=== PATIENT | female | born 1990 ===

== ENCOUNTER 2019-08-25 21:43 | Inpatient (IN) | payer BC ==
[2019-08-25] MEDS ORDERED: Vancomycin 1.7 GM in Sodium Chloride 0.9% 250 ML IV SCH (23:45)
[2019-08-25] MEDS ORDERED: Methylergonovine 0.2 MG/1 ML Amp IM PRN (23:56)
[2019-08-25] MEDS ORDERED: Sodium Chloride 0.9% 10 ML Syringe FLUSH PRN (23:56)
[2019-08-25] MEDS ORDERED: Sodium Chloride 0.9% 10 ML SDV IV PRN (23:56)
[2019-08-25] MEDS ORDERED: Nalbuphine 10 MG/1 ML Vial IVPUSH PRN (23:56)
[2019-08-25] MEDS ORDERED: Lidocaine 1% 50 ML MDV INJECT PRN (23:56)
[2019-08-25] MEDS ORDERED: Water For Irrigation,Sterile 1,000 ML Container IRR PRN (23:56)
[2019-08-25] MEDS ORDERED: Misoprostol 200 MCG Tab PO PRN (23:56)
[2019-08-25] MEDS ORDERED: Carboprost Tromethamine 250 MCG/1 ML Amp IM PRN (23:56)
[2019-08-25] MEDS ORDERED: Sodium Chloride 0.9% 2.5 ML Syringe FLUSH PRN (23:56)
[2019-08-25] MEDS ORDERED: Tranexamic Acid 1,000 MG in Sodium Chloride 0.9% 100 ML IV PRN (23:56)
[2019-08-26] MEDS: Vancomycin 1.7 GM in Sodium Chloride 0.9% 250 ML IV SCH ×3 (01:00→21:41)
[2019-08-26] MEDS: Butorphanol 1 MG/ML SDV IVPUSH PRN ×2 (02:11→04:01)
[2019-08-26] MEDS: Lactated Ringers 1,000 ML IV SCH ×3 (04:15→10:50)
[2019-08-26] MEDS ORDERED: Ropivacaine HCl/PF 100 ML ONE (04:39)
[2019-08-26] MEDS ORDERED: fentaNYL 100 MCG/2 ML SDV ONE (04:39)
--- NOTE | 2019-08-26 04:59 | PCM.PREANE ---
Preanesthetic Assessment - Anesthesia/Transfusion/Family Hx Anesthesia History: Prior Anesthesia Without Reaction Family History of Anesthesia Reaction: No Transfusion History: No Prior Transfusion(s) - Physical Assessment NPO Status Date: 08/26/19 NPO Status Time: 00:05 Height: 1.68 m Weight: 85.275 kg ASA Class: 1 - Lab Values: Laboratory Last Values WBC 9.59 K/uL (4.0-11.0) 08/26/19 00:30 RBC 3.98 M/uL (4.30-5.90) L 08/26/19 00:30 Hgb 11.8 g/dL (12.0-16.0) L 08/26/19 00:30 Hct 34.3 % (36.0-46.0) L 08/26/19 00:30 MCV 86.2 fL (80.0-98.0) 08/26/19 00:30 MCH 29.6 pg (27.0-32.0) 08/26/19 00:30 MCHC 34.4 g/dL (31.0-37.0) 08/26/19 00:30 RDW Std Deviation 39.3 fl (28.0-62.0) 08/26/19 00:30 RDW Coeff of Champ 13 % (11.0-15.0) 08/26/19 00:30 Plt Count 157 K/uL (150-400) 08/26/19 00:30 MPV 11.50 fL (7.40-12.00) 08/26/19 00:30 Blood Type O POSITIVE 08/26/19 00:30 Antibody Screen NEGATIVE 08/26/19 00:30 - Allergies Allergies/Adverse Reactions: Allergies Allergy/AdvReac Type Severity Reaction Status Date / Time Penicillins Allergy Other Verified 08/25/19 22:35 - Acknowledgements Anesthesia Type Planned: Epidural Pt an Appropriate Candidate for the Planned Anesthesia: Yes Alternatives and Risks of Anesthesia Discussed w Pt/Guardian: Yes Pt/Guardian Understands and Agrees with Anesthesia Plan: Yes PreAnesthesia Questionnaire HEENT History: Reports: None Cardiovascular History: Reports: None Respiratory History: Reports: None Gastrointestinal History: Reports: None Genitourinary History: Reports: Renal Calculus 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: Musculoskeletal History: Reports: None Neurological History: Reports: None Psychiatric History: Reports: None Endocrine/Metabolic History: Reports: Hypothyroidism Hematologic History: Reports: None Oncologic (Cancer) History: Reports: None Dermatologic History: Reports: Other (See Below) Other Dermatologic History: atypical moles removed - Infectious Disease History Infectious Disease History: Reports: Chicken Pox - Past Surgical History HEENT Surgical History: Reports: Oral Surgery GI Surgical History: Reports: None Female Surgical History: Reports: None - SUBSTANCE USE Smoking Status *Q: Never Smoker Second Hand Smoke Exposure: No Recreational Drug Use History: No - CURRENT (IN HOUSE) MEDS Current Meds: Current Medications Butorphanol Tartrate (Stadol) 1 mg IVPUSH Q1H PRN PRN Reason: Pain Last Admin: 08/26/19 04:01 Dose: 1 mg Carboprost Tromethamine (Hemabate Ds) 250 mcg IM ASDIRECTED PRN PRN Reason: Post Hemorrhage Lactated Ringer's (Ringers, Lactated) 1,000 mls @ 150 mls/hr IV ASDIRECTED ANGELA Oxytocin/Sodium Chloride (Oxytocin 30 Unit/500 Ml-Ns) 30 unit in 500 mls @ 500 mls/hr IV TITRATE ANGELA Tranexamic Acid 1,000 mg/ (Sodium Chloride) 110 mls @ 660 mls/hr IV ONETIME PRN PRN Reason: Bleeding Vancomycin HCl 1.7 gm/ Sodium (Chloride) 250 mls @ 166 mls/hr IV Q8H ANGELA Last Admin: 08/26/19 01:00 Dose: 166 mls/hr Lidocaine HCl (Xylocaine 1%) 50 ml INJECT ONETIME PRN PRN Reason: Laceration repair Methylergonovine Maleate (Methergine) 0.2 mg IM ASDIRECTED PRN PRN Reason: Post Hemorrhage Misoprostol (Cytotec) 200 mcg PO ONETIME PRN PRN Reason: Post Hemorrhage Nalbuphine HCl (Nubain) 10 mg IVPUSH Q1H PRN PRN Reason: Pain (severe 7-10) Sodium Chloride (Saline Flush) 10 ml FLUSH ASDIRECTED PRN PRN Reason: Keep Vein Open Sodium Chloride (Saline Flush) 2.5 ml FLUSH ASDIRECTED PRN PRN Reason: Keep Vein Open Sodium Chloride (Normal Saline) 10 ml IV ASDIRECTED PRN PRN Reason: IV Use Sterile Water (Sterile Water For Irrigation) 1,000 ml IRR ASDIRECTED PRN PRN Reason: delivery Discontinued Medications Fentanyl (Sublimaze) Confirm Administered Dose 100 mcg .ROUTE .[employer] ONE Stop: 08/26/19 04:40 Vancomycin HCl 1.7 gm/ Sodium (Chloride) 250 mls @ 166 mls/hr IV Q8H ANGELA Ropivacaine (Naropin 0.2%) Confirm Administered Dose 100 mls @ as directed .ROUTE .[employer] ONE Stop: 08/26/19 04:40
--- NOTE | 2019-08-26 05:02 | PCM.PRNOTE ---
- Free Text/Narrative Note: Anes Note Patietn requests epidural for L&D. Sitting position, level L3-L4 midline approach. Sterile technique. Chloraprep scrub to lumbar area. Sterile fenestrated drape applied. Epidural space easily achieved single attempt with ease using IWONA technique. IWONA at 3 cm. Cath threaded 5 cm with ease. Cath secured at 9 cm at skin using sterile clear adhesive dressing. Test 0449 3 cc 1.5% lido with epi negative. 0453 Load 10 cc 0.2% ropivicaine with 1 mcg cc fentanyl in slow divided doses. 0459 Pumps started with 90 cc same solution at 8 cc hr with 6 cc q 20 min prn bolus. Alma well. 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
[2019-08-26] MEDS: Oxytocin/0.9 % Sodium Chloride 30 UNIT/500 ML BAG IV SCH ×2 (12:50→13:35)
[2019-08-26] MEDS ORDERED: Docusate Sodium 100 MG Cap PO PRN (13:08)
[2019-08-26] MEDS ORDERED: Benzocaine/Menthol 20%-0.5% Spray 78 GM Cannister TOP PRN (13:08)
[2019-08-26] MEDS ORDERED: Lanolin 100% Cream 7 GM Tube TOP PRN (13:08)
[2019-08-26] MEDS ORDERED: Acetaminophen 500 MG Tab PO PRN (13:08)
[2019-08-26] MEDS ORDERED: oxyCODONE 5 MG Tab PO PRN (13:08)
[2019-08-26] MEDS ORDERED: Bisacodyl 10 MG Supp RECTAL PRN (13:08)
[2019-08-26] MEDS ORDERED: Witch Hazel Medicated Pads 40/Jar TOP PRN (13:08)
[2019-08-26] MEDS ORDERED: Ibuprofen 800 MG Tab PO PRN (13:08)
--- NOTE | 2019-08-26 13:13 | PCM.DEL ---
L & D Note - General Info Date of Service: 08/26/19 Mother's Due Date: 08/30/19 - Delivery Note Labor: Spontaneous Delivery Outcome: Livebirth Infant Delivery Method: Spontaneous Vaginal Delivery-Single Presentation: Vertex Nuchal Cord: None Anesthesia Type: Epidural Amniotic Fluid Description: Clear (terminal meconium) Episiotomy Type: None Laceration: 2nd Degree Suture type: Vicryl Suture size: 2-0 Placenta: Intact, Spontaneous Cord: 3 Vessels Resuscitation Needed: No : Stimulated, Warmed Score 1 min: 8 Score 5 min: 9 - General Info Date of Service: 08/26/19 - Patient Data Weight - Most Recent: 85.275 kg Lab Results Last 24 Hours: Laboratory Results - last 24 hr 08/26/19 08/26/19 Range/Units 00:30 00:30 WBC 9.59 (4.0-11.0) K/uL RBC 3.98 L (4.30-5.90) M/uL Hgb 11.8 L (12.0-16.0) g/dL Hct 34.3 L (36.0-46.0) % MCV 86.2 (80.0-98.0) fL MCH 29.6 (27.0-32.0) pg MCHC 34.4 (31.0-37.0) g/dL RDW Std Deviation 39.3 (28.0-62.0) fl RDW Coeff of Champ 13 (11.0-15.0) % Plt Count 157 (150-400) K/uL MPV 11.50 (7.40-12.00) fL Blood Type O POSITIVE Antibody Screen NEGATIVE Med Orders - Current: Current Medications Acetaminophen (Tylenol Extra Strength) 1,000 mg PO Q6H PRN PRN Reason: Pain Benzocaine/Menthol (Dermoplast Pain Relief 20%-0.5% [place]) 78 gm TOP ASDIRECTED PRN PRN Reason: Perineal Comfort Measure Bisacodyl (Dulcolax) 10 mg RECTAL ONETIME PRN PRN Reason: Constipation Butorphanol Tartrate (Stadol) 1 mg IVPUSH Q1H PRN PRN Reason: Pain Last Admin: 08/26/19 04:01 Dose: 1 mg Carboprost Tromethamine (Hemabate Ds) 250 mcg IM ASDIRECTED PRN PRN Reason: Post Hemorrhage Docusate Sodium (Colace) 100 mg PO BID PRN PRN Reason: Constipation Emollient Ointment (Lansinoh Hpa) 0 gm TOP ASDIRECTED PRN PRN Reason: Sore Nipples Lactated Ringer's (Ringers, Lactated) 1,000 mls @ 150 mls/hr IV ASDIRECTED [facility] Last Admin: 08/26/19 10:50 Dose: 150 mls/hr Oxytocin/Sodium Chloride (Oxytocin 30 Unit/500 Ml-Ns) 30 unit in 500 mls @ 500 mls/hr IV TITRATE [facility] Tranexamic Acid 1,000 mg/ (Sodium Chloride) 110 mls @ 660 mls/hr IV ONETIME PRN PRN Reason: Bleeding Vancomycin HCl 1.7 gm/ Sodium (Chloride) 250 mls @ 166 mls/hr IV Q8H [facility] Last Admin: 08/26/19 08:53 Dose: 166 mls/hr Ibuprofen (Motrin) 800 mg PO Q8H PRN PRN Reason: Pain Lidocaine HCl (Xylocaine 1%) 50 ml INJECT ONETIME PRN PRN Reason: Laceration repair Methylergonovine Maleate (Methergine) 0.2 mg IM ASDIRECTED PRN PRN Reason: Post Hemorrhage Misoprostol (Cytotec) 200 mcg PO ONETIME PRN PRN Reason: Post Hemorrhage Nalbuphine HCl (Nubain) 10 mg IVPUSH Q1H PRN PRN Reason: Pain (severe 7-10) Oxycodone HCl (Oxycodone) 5 mg PO Q2H PRN PRN Reason: Pain Sodium Chloride (Saline Flush) 10 ml FLUSH ASDIRECTED PRN PRN Reason: Keep Vein Open Sodium Chloride (Saline Flush) 2.5 ml FLUSH ASDIRECTED PRN PRN Reason: Keep Vein Open Sodium Chloride (Normal Saline) 10 ml IV ASDIRECTED PRN PRN Reason: IV Use Sterile Water (Sterile Water For Irrigation) 1,000 ml IRR ASDIRECTED PRN PRN Reason: delivery Witch Kylee (Tucks) 1 pad TOP ASDIRECTED PRN PRN Reason: comfort care Discontinued Medications Fentanyl (Sublimaze) Confirm Administered Dose 100 mcg .ROUTE .[employer] ONE Stop: 08/26/19 04:40 Vancomycin HCl 1.7 gm/ Sodium (Chloride) 250 mls @ 166 mls/hr IV Q8H ANGELA Ropivacaine (Naropin 0.2%) Confirm Administered Dose 100 mls @ as directed .ROUTE .[facility] ONE Stop: 08/26/19 04:40 - Problem List & Annotations (1) Vaginal delivery SNOMED Code(s): 643863130 Code(s): O80 - ENCOUNTER FOR FULL-TERM UNCOMPLICATED DELIVERY Status: Acute Current Visit: Yes - Problem List Review Problem List Initiated/Reviewed/Updated: Yes - My Orders Last 24 Hours: My Active Orders 08/26/19 13:08 Patient Status [ADT] Routine May Shower [RC] ASDIRECTED Notify Provider Vital Signs [RC] ASDIRECTED Up ad Keeley [RC] ASDIRECTED Vital Signs [RC] PER UNIT ROUTINE Acetaminophen [Tylenol Extra Strength] 1,000 mg PO Q6H PRN Benzocaine/Menthol [Dermoplast Pain Relief 20%-0.5% [place]] 78 gm TOP ASDIRECTED PRN Docusate Sodium [Colace] 100 mg PO BID PRN Ibuprofen [Motrin] 800 mg PO Q8H PRN Lanolin [Lansinoh HPA] See Dose Instructions TOP ASDIRECTED PRN bisacodyL [Dulcolax] 10 mg RECTAL ONETIME PRN oxyCODONE 5 mg PO Q2H PRN witch Kylee [Tucks] 1 pad TOP ASDIRECTED PRN Assess Lochia [WOMSER] Per Unit Routine Assess Uterine Involution [WOMSER] Per Unit Routine Breast Pump [WOMSER] Per Unit Routine Peripheral IV Discontinue [OM.PC] Routine 08/26/19 13:09 Cooling Warming Measures [RC] ASDIRECTED Ice Therapy [OM.PC] Per Unit Routine Perineal Care [OM.PC] Per Unit Routine Sitz Bath [OM.PC] Per Unit Routine 08/26/19 Lunch Regular Diet [DIET] 08/27/19 05:11 HEMOGLOBIN/HEMATOCRIT,HH [HEME] Timed - Assessment Assessment:: 29yo s/p at 39w3d - Plan Plan:: Admit to unit for routine care.
--- NOTE | 2019-08-26 17:35 | OR ---
SURGEON: Lauren Martini MD DATE OF PROCEDURE: 08/26/2019 PREOPERATIVE DIAGNOSES: 1. A 29-year-old, G2, P 0-0-1-0, at 39 weeks and 2 days' gestation. 2. Group B Streptococcus positive. 3. Labor. POSTOPERATIVE DIAGNOSES: 1. A 29-year-old, G2, P 1-0-1-1, status post spontaneous vaginal delivery at 39 weeks and 2 days' gestation. 2. Group B Streptococcus positive. 3. Labor. 4. Second-degree perineal laceration. PROCEDURE: 1. Spontaneous vaginal delivery. 2. Repair of second-degree perineal laceration. PRIMARY SURGEON: Lauren Martini MD ANESTHESIA: Epidural. ESTIMATED BLOOD LOSS: 250 mL. FINDINGS: Live female in cephalic presentation. score of 8 and 9 at one and five minutes respectively. Weight 3200 g. Second-degree perineal laceration. Placenta intact and with 3-vessel cord. INDICATIONS: This is a 29-year-old, G2, P 0-0-1-0, who presented at 39 weeks and 2 days' gestation complaining of contractions. While being monitored in triage, her cervix changed from 1 to 2 to 3 cm. She presented to Labor and Delivery for expectant management of labor. Vancomycin was begun for GBS prophylaxis. She received an epidural for pain control. She underwent artificial rupture of membranes with clear fluid noted and was found to be 9 cm dilated. She progressed to complete cervical dilation. DESCRIPTION OF PROCEDURE: I arrived to the room with station +2. She began pushing and over the next 45 minutes pushed to delivery of a live female infant. The head was delivered followed quickly by the shoulders and remainder of the body. The infant was placed on the maternal abdomen. After approximately 60 seconds, the cord was clamped and cut. The placenta then delivered intact and with 3-vessel cord via the Shaw-Weldon maneuver. The perineum was inspected and a second- degree perineal laceration was noted. This was repaired to anatomy and hemostasis with 2-0 Vicryl. Fundus was firm, below the umbilicus, minimal bleeding. The patient and tolerated the delivery well. [id number] / MODL /[id number] MTDJose J
--- NOTE | 2019-08-27 08:09 | PCM48HPAN ---
Post Anesthesia Note - EVALUATION WITHIN 48HRS OF ANESTHETIC Vital Signs in Normal Range: Yes Patient Participated in Evaluation: Yes Respiratory Function Stable: Yes Airway Patent: Yes Cardiovascular Function Stable: Yes Hydration Status Stable: Yes Pain Control Satisfactory: Yes Nausea and Vomiting Control Satisfactory: Yes Mental Status Recovered: Yes Vital Signs: Last Vital Signs Temp 36.4 C 08/27/19 07:15 Pulse 75 08/27/19 07:15 Resp 16 08/27/19 07:15 BP 119/71 08/27/19 07:15 Pulse Ox 98 08/27/19 07:15
--- NOTE | 2019-08-27 08:31 | PCM.PNPP ---
- General Info Date of Service: 08/27/19 Functional Status: Reports: Pain Controlled, Tolerating Diet, Ambulating, Urinating - Review of Systems General: Reports: No Symptoms HEENT: Reports: No Symptoms Pulmonary: Reports: No Symptoms Cardiovascular: Reports: No Symptoms Gastrointestinal: Reports: No Symptoms Genitourinary: Reports: No Symptoms Musculoskeletal: Reports: No Symptoms Skin: Reports: No Symptoms Neurological: Reports: No Symptoms Psychiatric: Reports: No Symptoms - Patient Data Vital Signs - Most Recent: Last Vital Signs Temp 36.4 C 08/27/19 07:15 Pulse 75 08/27/19 07:15 Resp 16 08/27/19 07:15 BP 119/71 08/27/19 07:15 Pulse Ox 98 08/27/19 07:15 Weight - Most Recent: 85.275 kg Lab Results - Last 24 Hours: Laboratory Results - last 24 hr 08/27/19 Range/Units 06:13 Hgb 10.4 L (12.0-16.0) g/dL Hct 31.4 L (36.0-46.0) % Med Orders - Current: Current Medications Acetaminophen (Tylenol Extra Strength) 1,000 mg PO Q6H PRN PRN Reason: Pain Benzocaine/Menthol (Dermoplast Pain Relief 20%-0.5% [place]) 78 gm TOP ASDIRECTED PRN PRN Reason: Perineal Comfort Measure Last Admin: 08/26/19 15:59 Dose: 1 can Bisacodyl (Dulcolax) 10 mg RECTAL ONETIME PRN PRN Reason: Constipation Butorphanol Tartrate (Stadol) 1 mg IVPUSH Q1H PRN PRN Reason: Pain Last Admin: 08/26/19 04:01 Dose: 1 mg Carboprost Tromethamine (Hemabate Ds) 250 mcg IM ASDIRECTED PRN PRN Reason: Post Hemorrhage Docusate Sodium (Colace) 100 mg PO BID PRN PRN Reason: Constipation Emollient Ointment (Lansinoh Hpa) 0 gm TOP ASDIRECTED PRN PRN Reason: Sore Nipples Lactated Ringer's (Ringers, Lactated) 1,000 mls @ 150 mls/hr IV ASDIRECTED ANGELA Last Admin: 08/26/19 10:50 Dose: 150 mls/hr Oxytocin/Sodium Chloride (Oxytocin 30 Unit/500 Ml-Ns) 30 unit in 500 mls @ 500 mls/hr IV TITRATE ANGELA Last Admin: 08/26/19 13:35 Dose: 500 mls/hr Tranexamic Acid 1,000 mg/ (Sodium Chloride) 110 mls @ 660 mls/hr IV ONETIME PRN PRN Reason: Bleeding Ibuprofen (Motrin) 800 mg PO Q8H PRN PRN Reason: Pain Last Admin: 08/26/19 17:23 Dose: 800 mg Lidocaine HCl (Xylocaine 1%) 50 ml INJECT ONETIME PRN PRN Reason: Laceration repair Methylergonovine Maleate (Methergine) 0.2 mg IM ASDIRECTED PRN PRN Reason: Post Hemorrhage Misoprostol (Cytotec) 200 mcg PO ONETIME PRN PRN Reason: Post Hemorrhage Nalbuphine HCl (Nubain) 10 mg IVPUSH Q1H PRN PRN Reason: Pain (severe 7-10) Oxycodone HCl (Oxycodone) 5 mg PO Q2H PRN PRN Reason: Pain Sodium Chloride (Saline Flush) 10 ml FLUSH ASDIRECTED PRN PRN Reason: Keep Vein Open Sodium Chloride (Saline Flush) 2.5 ml FLUSH ASDIRECTED PRN PRN Reason: Keep Vein Open Sodium Chloride (Normal Saline) 10 ml IV ASDIRECTED PRN PRN Reason: IV Use Sterile Water (Sterile Water For Irrigation) 1,000 ml IRR ASDIRECTED PRN PRN Reason: delivery Last Admin: 08/26/19 13:36 Dose: 1,000 ml Witch Cheryle (Tucks) 1 pad TOP ASDIRECTED PRN PRN Reason: comfort care Last Admin: 08/26/19 15:57 Dose: 1 can Discontinued Medications Fentanyl (Sublimaze) Confirm Administered Dose 100 mcg .ROUTE .[facility] ONE Stop: 08/26/19 04:40 Last Admin: 08/26/19 21:41 Dose: Not Given Vancomycin HCl 1.7 gm/ Sodium (Chloride) 250 mls @ 166 mls/hr IV Q8H [facility] Vancomycin HCl 1.7 gm/ Sodium (Chloride) 250 mls @ 166 mls/hr IV Q8H [facility] Last Admin: 08/26/19 21:41 Dose: Not Given Ropivacaine (Naropin 0.2%) Confirm Administered Dose 100 mls @ as directed .ROUTE .[facility] ONE Stop: 08/26/19 04:40 Last Admin: 08/26/19 21:41 Dose: Not Given - Infant Interaction Disposition, : in Room with Family Infant Feeding: Breastfed Infant; Nursed Well Support Person: - Recovery Exam Fundal Tone: Firm Fundal Level: 1 Fingerbreadths Below Umbilicus Fundal Placement: Midline Lochia Amount: Scant Lochia Color: Rubra/Red Other Perinuem Description: 2nd degree laceration Bladder Status: Voiding Urinary Elimination: Voided - Exam General: Alert, Oriented Neck: Supple Lungs: Normal Respiratory Effort Extremities: No Pedal Edema Skin: Warm, Dry, Intact Neurological: No New Focal Deficit Psy/Mental Status: Alert, Normal Affect, Normal Mood - Problem List & Annotations (1) Vaginal delivery SNOMED Code(s): 703926184 Code(s): O80 - ENCOUNTER FOR FULL-TERM UNCOMPLICATED DELIVERY Status: Acute Current Visit: Yes - Problem List Review Problem List Initiated/Reviewed/Updated: Yes - My Orders Last 24 Hours: My Active Orders 08/26/19 13:08 Patient Status [ADT] Routine May Shower [RC] ASDIRECTED Notify Provider Vital Signs [RC] ASDIRECTED Vital Signs [RC] PER UNIT ROUTINE Acetaminophen [Tylenol Extra Strength] 1,000 mg PO Q6H PRN Benzocaine/Menthol [Dermoplast Pain Relief 20%-0.5% [place]] 78 gm TOP ASDIRECTED PRN Docusate Sodium [Colace] 100 mg PO BID PRN Ibuprofen [Motrin] 800 mg PO Q8H PRN Lanolin [Lansinoh HPA] See Dose Instructions TOP ASDIRECTED PRN bisacodyL [Dulcolax] 10 mg RECTAL ONETIME PRN oxyCODONE 5 mg PO Q2H PRN witch Cheryle [Tucks] 1 pad TOP ASDIRECTED PRN Assess Lochia [WOMSER] Per Unit Routine Assess Uterine Involution [WOMSER] Per Unit Routine Breast Pump [WOMSER] Per Unit Routine Peripheral IV Discontinue [OM.PC] Routine 08/26/19 13:09 Ice Therapy [OM.PC] Per Unit Routine Perineal Care [OM.PC] Per Unit Routine Sitz Bath [OM.PC] Per Unit Routine 08/26/19 Lunch Regular Diet [DIET] 08/27/19 08:30 Ready for Discharge [RC] PER UNIT ROUTINE - Assessment Assessment:: 29yo s/p at 39w3d, PPD#1 - Plan Plan:: Desires discharge home today. Reviewed discharge instructions. Routine follow- up in 6 weeks unless problems arise.
== END 2019-08-27 15:45 | disposition home or self-care (01) | DRG 560 ==
LOC: MW.OBCHECK 21:43 → MW.OB 21:43 → MW.OBCHECK 23:56 → OBSVTOIN 08-26 12:50 → MW.OB 08-26 16:30
PROVIDERS: ADMIT Obstetrics & Gynecology; ATTEND Obstetrics & Gynecology
PROC: 10E0XZZ Delivery of Products of Conception, External Approach (ICD-10-PCS; principal; 2019-08-26)
PROC: 10907ZC Drainage of Amniotic Fluid, Therapeutic from Products of Conception, Via Natural or Artificial Opening (ICD-10-PCS; 2019-08-26)
PROC: 0KQM0ZZ Repair Perineum Muscle, Open Approach (ICD-10-PCS; 2019-08-26)
PROC: 3E0R3BZ Introduction of Anesthetic Agent into Spinal Canal, Percutaneous Approach (ICD-10-PCS; 2019-08-26)
PROC: 00HU33Z Insertion of Infusion Device into Spinal Canal, Percutaneous Approach (ICD-10-PCS; 2019-08-26)
DX: O99.824 Streptococcus B carrier state complicating childbirth (principal); O77.0 Labor and delivery complicated by meconium in amniotic fluid; O99.02 Anemia complicating childbirth; D64.9 Anemia, unspecified; Z3A.39 39 weeks gestation of pregnancy; Z37.0 Single live birth; O70.1 Second degree perineal laceration during delivery
CPT/HCPCS: 36415; 51702; 59025; 59409; 85014; 85018; 85027; 86592; 86593; 86850; 86900; 86901; A9270-GY; J0595; J2590; J2795; J3010; J3370; J7050; J7120

== ENCOUNTER 2021-03-03 03:41 | Inpatient (IN) | payer BC ==
[2021-03-03] MEDS ORDERED: Tranexamic Acid 1,000 MG in Sodium Chloride 0.9% 100 ML IV PRN (06:22)
[2021-03-03] MEDS ORDERED: Sodium Chloride 0.9% 2.5 ML Syringe FLUSH PRN (06:22)
[2021-03-03] MEDS ORDERED: Misoprostol 200 MCG Tab PO PRN (06:22)
[2021-03-03] MEDS ORDERED: Sodium Chloride 0.9% 10 ML Syringe FLUSH PRN (06:22)
[2021-03-03] MEDS ORDERED: Methylergonovine 0.2 MG/1 ML Amp IM PRN (06:22)
[2021-03-03] MEDS ORDERED: Water For Irrigation,Sterile 1,000 ML Container IRR PRN (06:22)
[2021-03-03] MEDS ORDERED: Carboprost Tromethamine 250 MCG/1 ML Amp IM PRN (06:22)
[2021-03-03] MEDS ORDERED: Lidocaine 1% 50 ML MDV INJECT PRN (06:22)
[2021-03-03] MEDS ORDERED: Nalbuphine 10 MG/1 ML Vial IVPUSH PRN (06:22)
[2021-03-03] MEDS ORDERED: Sodium Chloride 0.9% 20 ML SDV IV PRN (06:22)
[2021-03-03] MEDS ORDERED: Butorphanol 1 MG/ML SDV IVPUSH PRN (06:22)
[2021-03-03] MEDS ORDERED: Oxytocin/0.9 % Sodium Chloride 30 UNIT/500 ML BAG IV SCH ×2 (06:30→09:15)
[2021-03-03] MEDS: Lactated Ringers 1,000 ML IV SCH ×3 (06:35→10:38)
[2021-03-03] MEDS ORDERED: Ropivacaine HCl/PF 200 ML ONE (07:54)
[2021-03-03] MEDS ORDERED: Terbutaline 1 MG/ML SDV SUBCUT PRN (09:07)
--- NOTE | 2021-03-03 10:09 | PCM.PREANE ---
Preanesthetic Assessment - Procedure Proposed Procedure: Labor Epidural - Anesthesia/Transfusion/Family Hx Anesthesia History: Prior Anesthesia Without Reaction Family History of Anesthesia Reaction: No Transfusion History: No Prior Transfusion(s) - Review of Systems General: No Symptoms Pulmonary: No Symptoms Cardiovascular: No Symptoms Gastrointestinal: No Symptoms Neurological: No Symptoms Other: Reports: None - Physical Assessment NPO Status Date: 03/03/21 NPO Status Time: 07:00 Vital Signs: Last Vital Signs Temp 36.8 C 03/03/21 06:23 Pulse Resp BP Pulse Ox Height: 1.68 m Weight: 84.55 kg ASA Class: 2 Airway Class: Mallampati = 2 Dentition: Reports: Normal Dentition Thyro-Mental Finger Breadths: 3 Mouth Opening Finger Breadths: 3 ROM/Head Extension: Full Lungs: Clear to Auscultation, Normal Respiratory Effort Cardiovascular: Regular Rate, Regular Rhythm - Lab Values: Laboratory Last Values WBC 8.94 K/uL (4.0-11.0) 03/03/21 06:35 RBC 3.79 M/uL (4.30-5.90) L 03/03/21 06:35 Hgb 11.1 g/dL (12.0-16.0) L 03/03/21 06:35 Hct 32.6 % (36.0-46.0) L 03/03/21 06:35 MCV 86.0 fL (80.0-98.0) 03/03/21 06:35 MCH 29.3 pg (27.0-32.0) 03/03/21 06:35 MCHC 34.0 g/dL (31.0-37.0) 03/03/21 06:35 RDW Std Deviation 41.8 fl (28.0-62.0) 03/03/21 06:35 RDW Coeff of Champ 14 % (11.0-15.0) 03/03/21 06:35 Plt Count 161 K/uL (150-400) 03/03/21 06:35 MPV 12.00 fL (7.40-12.00) 03/03/21 06:35 Nucleated RBC % 0.0 /100WBC 03/03/21 06:35 Nucleated RBCs # 0 K/uL 03/03/21 06:35 SARS-CoV-2 RNA (JEREMY) NEGATIVE (NEGATIVE) 03/03/21 06:45 Blood Type O POSITIVE 03/03/21 07:32 Antibody Screen NEGATIVE 03/03/21 07:32 - Allergies Allergies/Adverse Reactions: Allergies Allergy/AdvReac Type Severity Reaction Status Date / Time Penicillins Allergy Other Verified 08/25/19 22:35 - Blood Blood Available: Yes Product(s) Available: PRBC (Type and screen) - Anesthesia Plan Pre-Op Medication Ordered: None - Acknowledgements Anesthesia Type Planned: Epidural Pt an Appropriate Candidate for the Planned Anesthesia: Yes Alternatives and Risks of Anesthesia Discussed w Pt/Guardian: Yes Pt/Guardian Understands and Agrees with Anesthesia Plan: Yes PreAnesthesia Questionnaire HEENT History: Reports: None Cardiovascular History: Reports: None Respiratory History: Reports: None Gastrointestinal History: Reports: GERD Genitourinary History: Reports: Renal Calculus, UTI, Recurrent 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 08/26/2019 - @ 39+2 weeks - female - 7#1oz Musculoskeletal History: Reports: None Neurological History: Reports: None Psychiatric History: Reports: None Endocrine/Metabolic History: Reports: Hypothyroidism Hematologic History: Reports: Anemia Immunologic History: Reports: None Oncologic (Cancer) History: Reports: None Dermatologic History: Reports: Other (See Below) Other Dermatologic History: 2019 - Atypical moles removed - Infectious Disease History Infectious Disease History: Reports: Chicken Pox - Past Surgical History Head Surgeries/Procedures: Reports: None HEENT Surgical History: Reports: Oral Surgery Other HEENT Surgeries/Procedures: Randolph Teeth - age 21 Cardiovascular Surgical History: Reports: None Respiratory Surgical History: Reports: None GI Surgical History: Reports: None Female Surgical History: Reports: None Endocrine Surgical History: Reports: None Neurological Surgical History: Reports: None Musculoskeletal Surgical History: Reports: None Oncologic Surgical History: Reports: None Dermatological Surgical History: Reports: None - SUBSTANCE USE Tobacco Use Status *Q: Never Tobacco User Tobacco Use Within Last Twelve Months: No Second Hand Smoke Exposure: No Days Per Week of Alcohol Use: 0 Recreational Drug Use History: No - HOME MEDS Home Medications: Home Meds Pnv 67/Iron Ps/Folate No.1/Dha [Vitafol Ultra Softgel] 1 cap PO QAM 03/03/21 [History] - CURRENT (IN HOUSE) MEDS Current Meds: Current Medications Butorphanol Tartrate (Butorphanol 1 Mg/Ml Sdv) 1 mg IVPUSH Q1H PRN PRN Reason: Pain (severe 7-10) Carboprost Tromethamine (Carboprost Tromethamine 250 Mcg/1 Ml Amp) 250 mcg IM ASDIRECTED PRN PRN Reason: Post Hemorrhage Oxytocin/Sodium Chloride (Oxytocin 30 Unit In Ns 0.9% 500 Ml Premix) 30 unit in 500 mls @ 999 mls/hr IV TITRATE ANGELA Tranexamic Acid 1,000 mg/ (Sodium Chloride) 110 mls @ 660 mls/hr IV ONETIME PRN PRN Reason: Bleeding Lactated Ringer's (Ringers, Lactated) 1,000 mls @ 150 mls/hr IV ASDIRECTED ANGELA Last Infusion: 03/03/21 08:20 Dose: 150 mls/hr Documented by: Oxytocin/Sodium Chloride (Oxytocin 30 Unit In Ns 0.9% 500 Ml Premix) 30 unit in 500 mls @ 2 mls/hr IV TITRATE ANGELA; Protocol Last Admin: 03/03/21 09:37 Dose: 2 munits/min, 2 mls/hr Documented by: Lidocaine HCl (Lidocaine 1% 50 Ml Mdv) 50 ml INJECT ONETIME PRN PRN Reason: Laceration repair Methylergonovine Maleate (Methylergonovine 0.2 Mg/1 Ml Amp) 0.2 mg IM ASDIRECTED PRN PRN Reason: Post Hemorrhage Misoprostol (Misoprostol 200 Mcg Tab) 200 mcg PO ONETIME PRN PRN Reason: Post Hemorrhage Nalbuphine HCl (Nalbuphine 10 Mg/1 Ml Vial) 10 mg IVPUSH Q1H PRN PRN Reason: Pain (severe 7-10) Sodium Chloride (Sodium Chloride 0.9% 10 Ml Syringe) 10 ml FLUSH ASDIRECTED PRN PRN Reason: Keep Vein Open Sodium Chloride (Sodium Chloride 0.9% 2.5 Ml Syringe) 2.5 ml FLUSH ASDIRECTED PRN PRN Reason: Keep Vein Open Sodium Chloride (Sodium Chloride 0.9% 20 Ml Sdv) 10 ml IV ASDIRECTED PRN PRN Reason: IV Use Sterile Water (Water For Irrigation,Sterile 1,000 Ml Container) 1,000 ml IRR ASDIRECTED PRN PRN Reason: delivery Terbutaline Sulfate (Terbutaline 1 Mg/Ml Sdv) 0.25 mg SUBCUT ASDIRECTED PRN PRN Reason: Tacysystole Discontinued Medications Ropivacaine (Naropin 0.2%) Confirm Administered Dose 200 mls @ as directed .ROUTE .[facility] ONE Stop: 03/03/21 07:55
--- NOTE | 2021-03-03 10:13 | PCM.SN.2 ---
- Pre-Procedure Checklist Attending Provider Aware: Yes Chart Reviewed: Yes Consent Signed: Yes Labs Reviewed: Yes VS/FHR Reviewed: Yes Patient Identification Confirmation Method: Reports: Chart Visual, Verbal Patient Pt an Appropriate Candidate for the Planned Anesthesia: Yes Alternatives and Risks of Anesthesia Discussed w Pt/Guardian: Yes - Procedure Procedure Start Date: 03/03/21 Procedure Start Time: 07:[address]: Reports: Blood Pressure, Heart Rate, SPO2 Functional IV: Yes Bolus Infused (fluid type and amount): 1000 ml LR Safety Measures: Reports: Patient Identified, Procedure Verified, Site Verified, Procedure Time Out Patient Position: Reports: Sitting Prep: Reports: Betadine x3, Sterile Drape Local Anesthetic: Reports: Intradermal Wheal w Lidocaine 1% (3 ml) Regional Placement Level: Reports: L3-4 Needle: Reports: 17 g Touhy Approach: Reports: Midline Technique: Reports: IWONA Glass Syringe IWONA Needle Depth (cm): 5 cm Parasthesia: Reports: None Fluid Obtained: Reports: None Catheter Depth at Skin (cm): 15 cm Test Dose Time: 07:51 Test Dose Medication: Reports: Lidocaine 1.5% w Epinephrine 1:200,000 (5 ML) Test Dose Response: Reports: Negative Loading Dose Time: 07:58 (7 ML) Loading Dose Medication: Ropivicaine 0.2% Loading Dose Patient Position: Supine Continuous Infusion Start Time: 07:59 Continuous Infusion Medication: Ropivicaine 0.2% Continuous Infusion Rate: 16 Continuous Infusion PCS Bolus Option: 6 Continuous Infusion Lockout Dose (cc/hr): 15 (Min Lockout) Patient Position Post Placement: Reports: Supline/NACHO Post-procedure Pain Level: 0 Level Achieved: T4 Procedure End Date: 03/03/21 Procedure End Time: 08:41 Procedure Comment: Sterile technique maintained throughout.
--- NOTE | 2021-03-03 10:13 | PCM.POSTAN ---
POST ANESTHESIA ASSESSMENT - MENTAL STATUS Mental Status: Alert, Oriented - VITAL SIGNS Vital Signs: Last Vital Signs Temp 36.8 C 03/03/21 06:23 Pulse Resp BP Pulse Ox - RESPIRATORY Respiratory Status: Respiratory Rate WNL, Airway Patent, O2 Saturation Stable - CARDIOVASCULAR CV Status: Pulse Rate WNL, Blood Pressure Stable - GASTROINTESTINAL GI Status: No Symptoms - POST OP HYDRATION Hydration Status: Adequate & Stable
[2021-03-03] MEDS ORDERED: ePHEDrine 50 MG/ML SDV IVPUSH PRN (10:23)
[2021-03-03] MEDS ORDERED: Ropivacaine/PF 400 MG/200 ML PCA EPIDUR SCH (10:30)
[2021-03-03] MEDS ORDERED: Lanolin 100% Cream 7 GM Tube TOP PRN (12:39)
[2021-03-03] MEDS ORDERED: oxyCODONE 5 MG Tab PO PRN (12:39)
[2021-03-03] MEDS ORDERED: Bisacodyl 10 MG Supp RECTAL PRN (12:39)
[2021-03-03] MEDS ORDERED: Witch Hazel Medicated Pads 40/Jar TOP PRN (12:39)
[2021-03-03] MEDS ORDERED: Benzocaine/Menthol 20%-0.5% Spray 78 GM Cannister TOP PRN (12:39)
[2021-03-03] MEDS ORDERED: Ibuprofen 400 MG Tab PO PRN (12:39)
[2021-03-03] MEDS ORDERED: Docusate Sodium 100 MG Cap PO PRN (12:39)
[2021-03-03] MEDS ORDERED: Acetaminophen 500 MG Tab PO PRN ×2 (12:39)
--- NOTE | 2021-03-03 12:45 | PCM.DEL ---
L & D Note - General Info Date of Service: 03/03/21 Mother's Due Date: 03/09/21 - Delivery Note Labor: Augmented by ARM, Augmented by Oxytocin Delivery Outcome: Livebirth Delivery Method: Spontaneous Vaginal Delivery-Single Presentation: Right Occiput Anterior (CUONG) Nuchal Cord: None Anesthesia Type: Epidural Amniotic Fluid Description: Clear Episiotomy Type: None Laceration: 2nd Degree Suture type: Vicryl Suture size: 2-0 Placenta: Intact, Spontaneous Cord: 3 Vessels Estimated Blood Loss: 350 Resuscitation Needed: No [place]: Bulb Syringe, Stimulated, [place] Used Provider: Lauren Martini Score 1 min: 8 Score 5 min: 9 Second Stage Interventions: Reports: Encouragement Given, Laboring Down, Pushing Effectively Delivery Comments (Free Text/Narrative):: Dictation #[id number] - General Info Date of Service: 03/03/21 - Patient Data Vitals - Most Recent: Last Vital Signs Temp 98.2 F 03/03/21 06:23 Pulse Resp BP Pulse Ox Weight - Most Recent: 186 lb 6.4 oz Lab Results Last 24 Hours: Laboratory Results - last 24 hr 03/03/21 03/03/21 03/03/21 Range/Units 06:35 06:45 07:32 WBC 8.94 (4.0-11.0) K/uL RBC 3.79 L (4.30-5.90) M/uL Hgb 11.1 L (12.0-16.0) g/dL Hct 32.6 L (36.0-46.0) % MCV 86.0 (80.0-98.0) fL MCH 29.3 (27.0-32.0) pg MCHC 34.0 (31.0-37.0) g/dL RDW Std Deviation 41.8 (28.0-62.0) fl RDW Coeff of Champ 14 (11.0-15.0) % Plt Count 161 (150-400) K/uL MPV 12.00 (7.40-12.00) fL Nucleated RBC % 0.0 /100WBC Nucleated RBCs # 0 K/uL SARS-CoV-2 RNA (JEREMY) NEGATIVE (NEGATIVE) Blood Type O POSITIVE Antibody Screen NEGATIVE Med Orders - Current: Current Medications Butorphanol Tartrate (Butorphanol 1 Mg/Ml Sdv) 1 mg IVPUSH Q1H PRN PRN Reason: Pain (severe 7-10) Carboprost Tromethamine (Carboprost Tromethamine 250 Mcg/1 Ml Amp) 250 mcg IM ASDIRECTED PRN PRN Reason: Post Hemorrhage Ephedrine Sulfate (Ephedrine 50 Mg/Ml Sdv) 10 mg IVPUSH Q1M PRN PRN Reason: Hypotension Oxytocin/Sodium Chloride (Oxytocin 30 Unit In Ns 0.9% 500 Ml Premix) 30 unit in 500 mls @ 999 mls/hr IV TITRATE ANGELA Tranexamic Acid 1,000 mg/ (Sodium Chloride) 110 mls @ 660 mls/hr IV ONETIME PRN PRN Reason: Bleeding Lactated Ringer's (Ringers, Lactated) 1,000 mls @ 150 mls/hr IV ASDIRECTED ANGELA Last Admin: 03/03/21 10:38 Dose: 150 mls/hr Documented by: Oxytocin/Sodium Chloride (Oxytocin 30 Unit In Ns 0.9% 500 Ml Premix) 30 unit in 500 mls @ 2 mls/hr IV TITRATE ANGELA; Protocol Last Titration: 03/03/21 12:12 Dose: 500 munits/min, 500 mls/hr Documented by: Lidocaine HCl (Lidocaine 1% 50 Ml Mdv) 50 ml INJECT ONETIME PRN PRN Reason: Laceration repair Methylergonovine Maleate (Methylergonovine 0.2 Mg/1 Ml Amp) 0.2 mg IM ASDIRECTED PRN PRN Reason: Post Hemorrhage Miscellaneous Medication (Phenylephrine Hcl In 0.9% Nacl 1 Mg/10 Ml Syringe) 0.1 mg IVPUSH Q1M PRN PRN Reason: Hypotension Misoprostol (Misoprostol 200 Mcg Tab) 200 mcg PO ONETIME PRN PRN Reason: Post Hemorrhage Nalbuphine HCl (Nalbuphine 10 Mg/1 Ml Vial) 10 mg IVPUSH Q1H PRN PRN Reason: Pain (severe 7-10) Ropivacaine (Ropivacaine/Pf 400 Mg/200 Ml Cosmetic Assembler) 400 mg EPIDUR ASDIRECTED ANGELA Sodium Chloride (Sodium Chloride 0.9% 10 Ml Syringe) 10 ml FLUSH ASDIRECTED PRN PRN Reason: Keep Vein Open Sodium Chloride (Sodium Chloride 0.9% 2.5 Ml Syringe) 2.5 ml FLUSH ASDIRECTED PRN PRN Reason: Keep Vein Open Sodium Chloride (Sodium Chloride 0.9% 20 Ml Sdv) 10 ml IV ASDIRECTED PRN PRN Reason: IV Use Sterile Water (Water For Irrigation,Sterile 1,000 Ml Container) 1,000 ml IRR ASDIRECTED PRN PRN Reason: delivery Last Admin: 03/03/21 12:19 Dose: 1,000 ml Documented by: Terbutaline Sulfate (Terbutaline 1 Mg/Ml Sdv) 0.25 mg SUBCUT ASDIRECTED PRN PRN Reason: Tacysystole Discontinued Medications Ropivacaine (Naropin 0.2%) Confirm Administered Dose 200 mls @ as directed .ROUTE .STK-MED ONE Stop: 03/03/21 07:55 - Exam Urinary Catheter Total Time: 0Days 0Hours - Problem List Review Problem List Initiated/Reviewed/Updated: Yes - My Orders Last 24 Hours: My Active Orders 03/03/21 12:39 Patient Status [ADT] Routine May Shower [RC] ASDIRECTED Up ad Keeley [RC] ASDIRECTED Vital Signs [RC] PER UNIT ROUTINE Acetaminophen [Tylenol Extra Strength] 1,000 mg PO Q4H PRN Acetaminophen [Tylenol Extra Strength] 500 mg PO Q4H PRN Benzocaine/Menthol [Dermoplast Pain Relief 20%-0.5% [place]] 78 gm TOP ASDIRECTED PRN Docusate Sodium [Colace] 100 mg PO Q12H PRN Ibuprofen [Motrin] 400 mg PO Q4H PRN Ibuprofen [Motrin] 800 mg PO Q6H PRN Lanolin [Lansinoh HPA] See Dose Instructions TOP ASDIRECTED PRN bisacodyL [Dulcolax] 10 mg RECTAL ONETIME PRN oxyCODONE 5 mg PO Q2H PRN witch Cheryle [Tucks] 1 pad TOP ASDIRECTED PRN Assess Lochia [WOMSER] Per Unit Routine Assess Uterine Involution [WOMSER] Per Unit Routine Peripheral IV Discontinue [OM.PC] Routine 03/04/21 05:11 HEMOGLOBIN/HEMATOCRIT,HH [HEME] Timed - Assessment Assessment:: 31 year old G3 now P2012 female PPD0 s/p - Plan Plan:: Routine cares * Rh positive, rubella immune, GBS negative * PO pain medications ordered PRN * Regular diet as tolerated * Encourage ambulation and fluid intake when able * Plans to breastfeed, nursing assistance PRN Dispo: stable. Admit to floor and anticipate routine course
--- NOTE | 2021-03-03 15:37 | OR ---
SURGEON: KRYSTA LORENZANA MD DATE OF PROCEDURE: 03/03/2021 PREOPERATIVE DIAGNOSES: Wright intrauterine at 39 weeks and 1 day. POSTOPERATIVE DIAGNOSIS: Wright intrauterine at 39 weeks and 1 day. PROCEDURES PERFORMED: 1. Spontaneous vaginal delivery. 2. Second-degree laceration repair. PRIMARY SURGEON: Krysta Lorenzana MD, present for the entire procedure. COMPLICATIONS: None known. ANESTHESIOLOGIST: Gigi Hagan CRNA ANESTHESIA: Epidural. ESTIMATED BLOOD LOSS: 350 mL. FINDINGS: Normal-appearing male , cephalic presentation. scores of 8 and 9. weight 9 pounds 0 ounce. Second-degree perineal laceration. INDICATION FOR THE PROCEDURE: Patient is a 31-year-old 3, para 1-0-1-3, who presented to Labor and Delivery in the supervisor cutting and sewing room of 03/03/2021, in spontaneous labor. She was admitted to Labor and Delivery and labor progressed to [address] Lauren Martini performed artificial rupture of membranes with clear fluid at approximately 0900 after patient had received epidural. After rupture of membranes, the patient progressed to 8 cm. However, progression was slow thereafter. 2 units of Pitocin was then initiated to augment labor. At approximately 11:35, I was notified that the patient was completely dilated and +2 station with the urge to push. DESCRIPTION OF PROCEDURE: I presented for delivery shortly thereafter and the patient was placed into the dorsal lithotomy position. The patient pushed with contractions for approximately 20 minutes with good descent. head delivered in occiput anterior position, restituted ROT. Anterior shoulder delivered easily. No nuchal cord was noted. Posterior shoulder and remaining body were then delivered. The baby was then placed on the maternal abdomen and evaluated by waiting nursing staff. The baby was pink, crying vigorously, moving all extremities immediately after the delivery. After approximately 2-1/2 minutes, the umbilical cord was noted to be no longer pulsating. The umbilical cord was then clamped and cut. Arterial, venous, and cord blood gases were then obtained. The placenta was then expressed, three-vessel cord was noted. Inspection of the perineum, vaginal grider, and cervix was then performed. A second-degree perineal laceration was noted. This was repaired in the usual fashion with 2-0 Vicryl. Hemostasis was confirmed. Fundal massage was performed and the patient's bleeding was light. She tolerated the procedure well and is recovering in the delivery room with the . CORRIE DELACRUZ /[id number]
[2021-03-03] MEDS: Ibuprofen 800 MG Tab PO PRN (23:44)
[2021-03-04] MEDS: Ibuprofen 800 MG Tab PO PRN (06:53)
--- NOTE | 2021-03-04 08:10 | PCM.PNPP ---
- General Info Date of Service: 03/04/21 Admission Dx/Problem (Free Text): Labor Subjective Update: Resting comfortably in bed during rounds. Pain well controlled. Ambulating and voiding without difficulty. Lochia decreasing. Tolerating regular diet. going well per patient. - General Info Date of Service: 03/04/21 - Patient Data Vital Signs - Most Recent: Last Vital Signs Temp 97.1 F 03/03/21 19:47 Pulse 76 03/03/21 19:47 Resp 16 03/03/21 19:47 BP 110/76 03/03/21 19:47 Pulse Ox 98 03/03/21 19:47 Weight - Most Recent: 186 lb 6.4 oz Lab Results - Last 24 Hours: Laboratory Results - last 24 hr 03/03/21 03/04/21 Range/Units 07:32 06:38 Hgb 10.0 L (12.0-16.0) g/dL Hct 29.2 L (36.0-46.0) % Blood Type O POSITIVE Antibody Screen NEGATIVE Med Orders - Current: Current Medications Acetaminophen (Acetaminophen 500 Mg Tab) 500 mg PO Q4H PRN PRN Reason: Pain (mild 1-3) Acetaminophen (Acetaminophen 500 Mg Tab) 1,000 mg PO Q4H PRN PRN Reason: Pain (mild 1-3) Benzocaine/Menthol (Benzocaine/Menthol 20%-0.5% [place] 78 Gm Cannister) 78 gm TOP ASDIRECTED PRN PRN Reason: Perineal Comfort Measure Bisacodyl (Bisacodyl 10 Mg Supp) 10 mg RECTAL ONETIME PRN PRN Reason: Constipation Butorphanol Tartrate (Butorphanol 1 Mg/Ml Sdv) 1 mg IVPUSH Q1H PRN PRN Reason: Pain (severe 7-10) Carboprost Tromethamine (Carboprost Tromethamine 250 Mcg/1 Ml Amp) 250 mcg IM ASDIRECTED PRN PRN Reason: Post Hemorrhage Docusate Sodium (Docusate Sodium 100 Mg Cap) 100 mg PO Q12H PRN PRN Reason: Constipation Emollient Ointment (Lanolin 100% Cream 7 Gm Tube) 0 gm TOP ASDIRECTED PRN PRN Reason: Sore Nipples Ephedrine Sulfate (Ephedrine 50 Mg/Ml Sdv) 10 mg IVPUSH Q1M PRN PRN Reason: Hypotension Oxytocin/Sodium Chloride (Oxytocin 30 Unit In Ns 0.9% 500 Ml Premix) 30 unit in 500 mls @ 999 mls/hr IV TITRATE ANGELA Tranexamic Acid 1,000 mg/ (Sodium Chloride) 110 mls @ 660 mls/hr IV ONETIME PRN PRN Reason: Bleeding Lactated Ringer's (Ringers, Lactated) 1,000 mls @ 150 mls/hr IV ASDIRECTED ANGELA Last Admin: 03/03/21 10:38 Dose: 150 mls/hr Documented by: Oxytocin/Sodium Chloride (Oxytocin 30 Unit In Ns 0.9% 500 Ml Premix) 30 unit in 500 mls @ 2 mls/hr IV TITRATE ANGELA; Protocol Last Titration: 03/03/21 12:12 Dose: 500 munits/min, 500 mls/hr Documented by: Ibuprofen (Ibuprofen 400 Mg Tab) 400 mg PO Q4H PRN PRN Reason: Pain (mild 1-3) Ibuprofen (Ibuprofen 800 Mg Tab) 800 mg PO Q6H PRN PRN Reason: Cramping Last Admin: 03/04/21 06:53 Dose: 800 mg Documented by: Lidocaine HCl (Lidocaine 1% 50 Ml Mdv) 50 ml INJECT ONETIME PRN PRN Reason: Laceration repair Methylergonovine Maleate (Methylergonovine 0.2 Mg/1 Ml Amp) 0.2 mg IM ASDIRECTE D PRN PRN Reason: Post Hemorrhage Miscellaneous Medication (Phenylephrine Hcl In 0.9% Nacl 1 Mg/10 Ml Syringe) 0.1 mg IVPUSH Q1M PRN PRN Reason: Hypotension Misoprostol (Misoprostol 200 Mcg Tab) 200 mcg PO ONETIME PRN PRN Reason: Post Hemorrhage Nalbuphine HCl (Nalbuphine 10 Mg/1 Ml Vial) 10 mg IVPUSH Q1H PRN PRN Reason: Pain (severe 7-10) Oxycodone HCl (Oxycodone 5 Mg Tab) 5 mg PO Q2H PRN PRN Reason: Pain (severe 7-10) Ropivacaine (Ropivacaine/Pf 400 Mg/200 Ml Volleyball Assembler) 400 mg EPIDUR ASDIRECTED ANGELA Sodium Chloride (Sodium Chloride 0.9% 10 Ml Syringe) 10 ml FLUSH ASDIRECTED PRN PRN Reason: Keep Vein Open Sodium Chloride (Sodium Chloride 0.9% 2.5 Ml Syringe) 2.5 ml FLUSH ASDIRECTED PRN PRN Reason: Keep Vein Open Sodium Chloride (Sodium Chloride 0.9% 20 Ml Sdv) 10 ml IV ASDIRECTED PRN PRN Reason: IV Use Sterile Water (Water For Irrigation,Sterile 1,000 Ml Container) 1,000 ml IRR ASDIRECTED PRN PRN Reason: delivery Last Admin: 03/03/21 12:19 Dose: 1,000 ml Documented by: Terbutaline Sulfate (Terbutaline 1 Mg/Ml Sdv) 0.25 mg SUBCUT ASDIRECTED PRN PRN Reason: Tacysystole Witch Cheryle (Witch Cheryle Medicated Pads 40/Jar) 1 pad TOP ASDIRECTED PRN PRN Reason: comfort care Discontinued Medications Ropivacaine (Naropin 0.2%) Confirm Administered Dose 200 mls @ as directed .ROUTE .STK-MED ONE Stop: 03/03/21 07:55 Last Admin: 03/03/21 14:52 Dose: Not Given Documented by: - Infant Interaction Disposition, : in Room with Family Feeding: Breastfed ; Nursed Well Support Person: - Recovery Exam Fundal Tone: Firm Fundal Level: 1 Fingerbreadths Below Umbilicus Fundal Placement: Midline Lochia Amount: Scant Lochia Color: Rubra/Red Episiotomy/Laceration: Approximated Bladder Status: Voiding - Exam General: Alert Lungs: Normal Respiratory Effort Cardiovascular: Regular Rate GI/Abdominal Exam: Soft, Non-Tender, No Distention Extremities: Normal Range of Motion, Non-Tender, No Pedal Edema Skin: Warm, Dry, Intact Neurological: No New Focal Deficit Psy/Mental Status: Normal Mood - Problem List Review Problem List Initiated/Reviewed/Updated: Yes - My Orders Last 24 Hours: My Active Orders 03/03/21 12:39 Patient Status [ADT] Routine May Shower [RC] ASDIRECTED Up ad Keeley [RC] ASDIRECTED Vital Signs [RC] PER UNIT ROUTINE Acetaminophen [Tylenol Extra Strength] 1,000 mg PO Q4H PRN Acetaminophen [Tylenol Extra Strength] 500 mg PO Q4H PRN Benzocaine/Menthol [Dermoplast Pain Relief 20%-0.5% [place]] 78 gm TOP ASDIRECTED PRN Docusate Sodium [Colace] 100 mg PO Q12H PRN Ibuprofen [Motrin] 400 mg PO Q4H PRN Ibuprofen [Motrin] 800 mg PO Q6H PRN Lanolin [Lansinoh HPA] See Dose Instructions TOP ASDIRECTED PRN bisacodyL [Dulcolax] 10 mg RECTAL ONETIME PRN oxyCODONE 5 mg PO Q2H PRN witch Cheryle [Tucks] 1 pad TOP ASDIRECTED PRN Assess Lochia [WOMSER] Per Unit Routine Assess Uterine Involution [WOMSER] Per Unit Routine Peripheral IV Discontinue [OM.PC] Routine - Assessment Assessment:: 31 year old G3 now P2012 female PPD1 s/p - Plan Plan:: Routine cares * Rh positive, rubella immune, GBS negative * PO pain medications ordered PRN * Regular diet as tolerated * Encourage ambulation and fluid intake * Plans to breastfeed, nursing assistance PRN Dispo: stable. Anticipate discharge today pending maternal/ status. Discharge precautions reviewed. Patient to return to clinic in 4 weeks for PPV.
--- NOTE | 2021-03-05 13:42 | PCM48HPAN ---
Post Anesthesia Note - EVALUATION WITHIN 48HRS OF ANESTHETIC Vital Signs in Normal Range: Yes Patient Participated in Evaluation: Yes Respiratory Function Stable: Yes Airway Patent: Yes Cardiovascular Function Stable: Yes Hydration Status Stable: Yes Pain Control Satisfactory: Yes Nausea and Vomiting Control Satisfactory: Yes Mental Status Recovered: Yes Vital Signs: Last Vital Signs Temp 36.9 C 03/04/21 16:00 Pulse 100 03/04/21 16:00 Resp 16 03/04/21 16:00 BP 119/66 03/04/21 16:00 Pulse Ox 98 03/04/21 16:00 - COMMENTS/OBSERVATIONS Free Text/Narrative:: Patient discharged. Anesthesia has not been notified of any complications or complaints at this time.
== END 2021-03-04 20:05 | disposition home or self-care (01) | DRG 560 ==
LOC: MW.OBCHECK 03:41 → MW.OB 03:42 → MW.OBCHECK 06:23 → MW.OB 06:23 → OBSVTOIN 12:39 → MW.OB 17:58
PROVIDERS: ADMIT Obstetrics & Gynecology; ATTEND Obstetrics & Gynecology
PROC: 10E0XZZ Delivery of Products of Conception, External Approach (ICD-10-PCS; principal; 2021-03-03)
PROC: 10907ZC Drainage of Amniotic Fluid, Therapeutic from Products of Conception, Via Natural or Artificial Opening (ICD-10-PCS; 2021-03-03)
PROC: 0KQM0ZZ Repair Perineum Muscle, Open Approach (ICD-10-PCS; 2021-03-03)
PROC: 3E0R3BZ Introduction of Anesthetic Agent into Spinal Canal, Percutaneous Approach (ICD-10-PCS; 2021-03-03)
PROC: 00HU33Z Insertion of Infusion Device into Spinal Canal, Percutaneous Approach (ICD-10-PCS; 2021-03-03)
DX: O99.62 Diseases of the digestive system complicating childbirth (principal); Z37.0 Single live birth; K21.9 Gastro-esophageal reflux disease without esophagitis; O99.284 Endocrine, nutritional and metabolic diseases complicating childbirth; E03.9 Hypothyroidism, unspecified; O99.02 Anemia complicating childbirth; D64.9 Anemia, unspecified; O70.1 Second degree perineal laceration during delivery; Z3A.39 39 weeks gestation of pregnancy; Z20.822 Contact with and (suspected) exposure to COVID-19
CPT/HCPCS: 01967; 36415; 51702; 59025; 59409; 85014; 85018; 85027; 86592; 86850; 86900; 86901; A9270-GY; J2590; J2795; J7120; U0002